=== PATIENT | female | born 2000 | race Two or more races ===

== ENCOUNTER 2025-01-03 11:59 | Emergency (ER) | payer OTHER ==
[~2025-01-03] VITALS: Ht 149.9 cm; Wt 56.7 kg
[2025-01-03 12:44] VITALS: BP 109/67; O2SAT 99
[2025-01-03 16:08] LABS: BASO % 0.6 % (0.1-1.2); EOS # 0.12 (0.04-0.54); EOS % 1.0 % (0.7-7.0); LYMPH # 2.97 (1.18-3.74); LYMPH % 24.6 % (19.3-53.1); MEAN PLATELET VOLUME 9.40 fl (9.4-12.4); MONO # 1.35 (0.24-0.82); MONO % 11.2 % (4.7-12.5); NEUT # 7.54 (1.56-6.13); NEUT % 62.4 % (34.0-71.1); RED CELL DISTRIBUTION WIDTH 13.4 % (11.6-14.4)
[2025-01-03 16:43] LABS: URINE APPEARANCE Cloudy; URINE BILIRRUBIN Negative (NEGATIVE); URINE BLOOD Negative; URINE COLOR Yellow; URINE GLUCOSE Negative (NEGATIVE); URINE KETONE Negative (NEGATIVE); URINE LEUKOCYTE Moderate; URINE NITRATE Negative; URINE PROTEIN Negative (NEGATIVE); URINE UROBILINOGEN 0.2 E.U./dl
[2025-01-03 16:55] LABS: URINE BACTERIA 1984.7 uL (0.0-1933); URINE EPITHELIAL CELLS 53.9 uL (0.0-38.8); URINE RBC 2.1 uL (0.0-20.8); URINE WBC 376.6 uL (0.0-23.2)
[2025-01-03 16:59] LABS: COVID-19 AG NEGATIVE (NEGATIVE)
[2025-01-03 17:18] LABS: URINE CAST 0.58 uL (0.0-1.40)
[2025-01-03 17:19] LABS: TYPE CELLS SQUAMOUS; URINE MUCUS SCANT
== END 2025-01-03 19:07 | disposition home or self-care (01) ==
LOC: ER 11:59
PROVIDERS: Preventive Medicine Public Health & General Preventive Medicine
DX: J02.8 Acute pharyngitis due to other specified organisms (principal); N39.0 Urinary tract infection, site not specified